=== PATIENT | female | born 1960 | race Caucasian/White ===

== ENCOUNTER → 2016-05-31 | Outpatient (CLI) | payer OTHER ==
[2014-05-20 08:39] VITALS: BP 121/62
[~2016-05-31] MED LIST: DULO60CA6 PO; ESOM40CA PO; FEXO180T81 PO; INSU100I17 SQ; INSU100V8 SQ; LOSA50TA6 PO; METF10002 PO; PIRO20CA2 PO
[2016-05-31 08:11] LABS: BASO # 0.1 x10^3/uL (0.0-0.2); BASO % 1 % (0-3); EOS % 5 % (0-3); HEMATOCRIT 36.1 % (36.0-47.0); HEMOGLOBIN 11.2 g/dL (12.0-15.5); LYMPH # 4.4 x10^3/uL (1.0-4.8); LYMPH % 31 % (24-48); MEAN CORPUSCULAR HEMOGLOBIN 26 pg (25-35); MEAN CORPUSCULAR HGB CONC 31 g/dL (31-37); MEAN CORPUSCULAR VOLUME 83 fL (79-100); MONO % 7 % (0-9); NEUT % 57 % (31-73); PLATELET COUNT 423 x10^3/uL (140-400); RED BLOOD COUNT 4.34 x10^6/uL (3.50-5.40); RED CELL DISTRIBUTION WIDTH 15.5 % (11.5-14.5); WHITE BLOOD COUNT 14.4 x10^3/uL (4.0-11.0)
[2016-05-31 08:31] LABS: ALBUMIN 3.4 g/dL (3.4-5.0); ALBUMIN/GLOBULIN RATIO 0.9 (1.0-1.7); CALCIUM 9.1 mg/dL (8.5-10.1); CREATININE 1.1 mg/dL (0.6-1.0); POTASSIUM 4.4 mmol/L (3.5-5.1); TOTAL BILIRUBIN 0.3 mg/dL (0.2-1.0); TOTAL PROTEIN 7.1 g/dL (6.4-8.2)
== END | disposition home or self-care (01) ==
LOC: LAB 07:27
PROVIDERS: ATTEND Family Medicine
DX: I10 Essential (primary) hypertension (principal); E11.65 Type 2 diabetes mellitus with hyperglycemia
CPT/HCPCS: 36415; 80053; 82043; 83036; 85027

== ENCOUNTER → 2016-07-29 | Outpatient (CLI) | payer OTHER ==
[2014-05-20 08:39] VITALS: BP 121/62
[2016-07-29 08:08] LABS: BASO # 0.1 x10^3/uL (0.0-0.2); BASO % 1 % (0-3); EOS % 5 % (0-3); HEMATOCRIT 36.5 % (36.0-47.0); HEMOGLOBIN 11.5 g/dL (12.0-15.5); LYMPH # 5.1 x10^3/uL (1.0-4.8); LYMPH % 37 % (24-48); MEAN CORPUSCULAR HEMOGLOBIN 26 pg (25-35); MEAN CORPUSCULAR HGB CONC 31 g/dL (31-37); MEAN CORPUSCULAR VOLUME 81 fL (79-100); MONO % 7 % (0-9); NEUT % 50 % (31-73); PLATELET COUNT 373 x10^3/uL (140-400); RED BLOOD COUNT 4.48 x10^6/uL (3.50-5.40); RED CELL DISTRIBUTION WIDTH 15.2 % (11.5-14.5); WHITE BLOOD COUNT 13.8 x10^3/uL (4.0-11.0)
[2016-07-30 03:21] LABS: VITAMIN D25(OH)TOTAL 14.8 ng/mL (30.0-100.0)
== END | disposition home or self-care (01) ==
LOC: LAB 07:39
PROVIDERS: ATTEND Family Medicine
DX: M79.1 Myalgia (principal)
CPT/HCPCS: 36415; 82306; 85027; 85651; 86141

== ENCOUNTER → 2016-08-26 | Outpatient (CLI) | payer OTHER ==
[2014-05-20 08:39] VITALS: BP 121/62
--- NOTE | 2016-08-26 12:14 | RAD ---
Bilateral hand radiographs History: Polyarthralgia. Comparison: Similar examination 08/18/2015. Findings: PA, lateral, and oblique views of the right hand. No acute fracture or dislocation is identified. No erosive changes are seen. No significant degeneration is identified. No focal soft tissue swelling is seen. PA, lateral, and oblique views of the left hand. No acute fracture or dislocation is identified. No erosive changes are seen. No significant degeneration is appreciated. No focal soft tissue swelling is identified. Impression: Unremarkable bilateral hand radiographs.
[2016-08-26 20:20] LABS: RHEUMATOID FACTOR <10.0 IU/mL (0.0-13.9)
[2016-08-28 15:10] LABS: CYCLIC CITRULLIN PEP AB 4 units (0-19)
== END | disposition home or self-care (01) ==
LOC: LAB 08:45
PROVIDERS: ATTEND Internal Medicine Rheumatology
DX: M25.541 Pain in joints of right hand (principal)
CPT/HCPCS: 36415; 73130; 86200; 86431

== ENCOUNTER → 2016-08-26 | Outpatient (CLI) | payer OTHER ==
[2014-05-20 08:39] VITALS: BP 121/62
--- NOTE | 2016-08-26 08:57 | RAD ---
DATE: 08/26/2016 EXAM: DIGITAL SCREEN BILAT W/CAD HISTORY: Routine screening COMPARISON: 07/16/2015 This study was interpreted with the benefit of Computerized Aided Detection (CAD). FINDINGS: The breasts are predominantly fatty replaced. There is a small unchanged smooth nodule in the axillary tail region of the left breast compatible with an intramammary lymph node. No new or enlarging breast densities are seen. Minimal benign type calcification is present. No suspicious microcalcifications have developed. IMPRESSION: Stable mammograms without evidence of malignancy. BI-RADS CATEGORY: 2 BENIGN FINDING(S) RECOMMENDED FOLLOW-UP: 12M 12 MONTH FOLLOW-UP PQRS compliance statement: Patient information was entered into a reminder system with a target due date for the next mammogram. Mammography is a sensitive method for finding small breast cancers, but it does not detect them all and is not a substitute for careful clinical examination. A negative mammogram does not negate a clinically suspicious finding and should not result in delay in biopsying a clinically suspicious abnormality. "Our facility is accredited by the [employer] Mammography [employer]."
== END | disposition home or self-care (01) ==
LOC: MAMMO 08:05
PROVIDERS: ATTEND Family Medicine
DX: Z12.31 Encounter for screening mammogram for malignant neoplasm of breast (principal)
CPT/HCPCS: G0202; 77067

== ENCOUNTER 2016-09-13 08:50 | Emergency (ER) | payer OTHER ==
[~2016-09-13] VITALS: Ht 157.5 cm; Wt 108.9 kg
[2016-09-13 09:35] VITALS: BP 118/60
[2016-09-13] MEDS ORDERED: IBUPROFEN 800 MG TABLET. PO ONE (10:00)
--- NOTE | 2016-09-13 11:01 | RAD ---
CT cervical spine without contrast History: Fall, pain Comparison: None. Technique: Noncontrast helical CT of the cervical spine was performed from the skull base through the mid T2 level. Axial, sagittal, and coronal reconstructions were obtained. One or more of the following individualized dose reduction techniques were utilized for the study: Automated exposure control Adjustment of mA and/or kV according to patient's size Use of iterative reconstruction technique. Findings: There is motion artifact at multiple levels which could obscure subtle abnormalities. There is no evidence of acute fracture or acute malalignment. No prevertebral soft tissue swelling is identified. Multilevel degeneration is present with facet and uncovertebral hypertrophy as well as degenerative disc disease. Impression: 1. No acute osseous traumatic injury identified in the cervical spine. 2. Degeneration.
--- NOTE | 2016-09-13 11:06 | RAD ---
CT thoracic spine without contrast History: Fall, pain Comparison: None. Technique: Noncontrast helical CT of the thoracic spine was performed. Axial, sagittal, and coronal reconstructions were obtained. One or more of the following individualized dose reduction techniques were utilized for the study: Automated exposure control Adjustment of mA and/or kV according to patient's size Use of iterative reconstruction technique. Findings: No acute fracture to malalignment is identified. No paravertebral soft tissue swelling is identified. There are 12 rib-bearing thoracic type vertebral bodies. Multiple levels demonstrate marginal disc osteophytes, compatible with changes of diffuse idiopathic skeletal hyperostosis (DISH). Impression: 1. No acute osseous traumatic injury identified.
--- NOTE | 2016-09-13 11:44 | RAD ---
Left ankle, 3 views, 09/13/2016: History: Fall, pain There is a bony fragment at the tip of the medial malleolus which is probably old. There is moderate soft tissue swelling laterally. No acute fracture or dislocation is identified. There is mild spurring at the ankle joint. A small inferior calcaneal spur is noted. Left foot, 3 views, 09/13/2016: No fracture or dislocation is identified. There is mild subcutaneous edema about the foot. IMPRESSION: 1. A small bony fragment at the tip of the medial malleolus is most likely due to old trauma. 2. Mild degenerative change at the ankle joint. 3. No acute bony abnormality is detected.
--- NOTE | 2016-09-13 11:47 | RAD ---
Right foot, 3 views, 09/13/2016: History: Fall, pain No acute fracture or dislocation is identified. There is a small inferior calcaneal spur. IMPRESSION: No acute bony abnormality is detected.
--- NOTE | 2016-09-13 11:48 | RAD ---
Pelvis with right hip, 3 views, 09/13/2016: History: Fall, hip pain No fracture or dislocation is identified. The hip joint spaces are fairly well preserved with mild marginal spurring. IMPRESSION: No acute pelvic or right hip abnormality is detected.
--- NOTE | 2016-09-13 12:50 | PHYS DOC ---
Past Medical History Past Medical History: Anxiety, Arthritis, Depression, Diabetes-Type I Additional Past Medical Histor: SHINGLES Past Surgical History: Cholecystectomy, Other Additional Past Surgical Histo: SCOPES TO BOTH KNEES, LEFT TENNIS ELBOW, BREAST BX, LIPOMAA REMOVAL Alcohol Use: None Drug Use: None Adult General Chief Complaint Chief Complaint: MECHANICAL FALL HPI HPI Patient is a 56 year old female with history of anxiety, arthritis, depression who presents today status post falling, patient states she got tangled on a patient's oxygen tubbing and fell. Patient denies any loss of consciousness. She is complaining of neck pain, thoracic pain, right hip pain, left ankle pain , bilateral feet pain. Patient denies any pain radiating to bilateral lower extremities, denies any loss of bowel bladder function. Review of Systems Review of Systems Constitutional: Denies fever or chills [] Eyes: Denies change in visual acuity, redness, or eye pain [] HENT: Denies nasal congestion or sore throat [] Respiratory: Denies cough or shortness of breath [] Cardiovascular: No additional information not addressed in HPI [] GI: Denies abdominal pain, nausea, vomiting, bloody stools or diarrhea [] : Denies dysuria or hematuria [] Musculoskeletal: Denies back pain or joint pain [] Integument: Denies rash or skin lesions [] Neurologic: Denies headache, focal weakness or sensory changes [] Endocrine: Denies polyuria or polydipsia [] Current Medications Current Medications Current Medications Medications (Trade) Dose Ordered Sig/Gretchen Start Time Stop Time Status Last Admin Dose Admin Ibuprofen (Motrin) 800 mg 1X ONCE 09/13/16 10:00 09/13/16 10:01 DC 09/13/16 10:11 800 MG Allergies Allergies Allergies Coded Allergies Type Severity Reaction Last Updated Verified Sulfa (Sulfonamide Antibiotics) Allergy Intermediate 05/20/14 Yes doxycycline Allergy Intermediate Itching 05/20/14 Yes levofloxacin Allergy Intermediate bone pain 05/20/14 No Physical Exam Physical Exam Constitutional: Well developed, well nourished, no acute distress, non-toxic appearance. [] HENT: Normocephalic, atraumatic, bilateral external ears normal, oropharynx moist, no oral exudates, nose normal. [] Eyes: PERRLA, EOMI, conjunctiva normal, no discharge. [] Neck: Normal range of motion, diffuse paraspinal muscle tenderness to the right lateral spine, slight midline tenderness to the spine, supple, no stridor. [] Cardiovascular:Heart rate regular rhythm, no murmur [] Lungs & Thorax: Bilateral breath sounds clear to auscultation [] Abdomen: Bowel sounds normal, soft, no tenderness, no masses, no pulsatile masses. [] Skin: Warm, dry, no erythema, no rash. [] Back: No tenderness, no CVA tenderness. [] Extremities: No obvious deformity to the bilateral lower extremities. Tenderness on palpation of the right posterior hip. Mild amount of soft tissue swelling to bilateral ankles. Tenderness diffusely on palpation of the left lateral ankle. Full range of motion to the left ankle and foot. Full range of motion to the right foot. +2 bilateral pedal pulses. Sensation intact bilateral lower extremities. Neurologic: Alert and oriented X 3, normal motor function, normal sensory function, no focal deficits noted. [] Psychologic: Affect normal, judgement normal, mood normal. [] Current Patient Data Vital Signs Vital Signs Date Time Temp Pulse Resp B/P Pulse Ox O2 Delivery O2 Flow Rate FiO2 09/13/16 09:35 98.1 83 19 94 Room Air 98.1 EKG EKG [] Radiology/Procedures Radiology/Procedures [] Course & Med Decision Making Course & Med Decision Making Pertinent Labs and Imaging studies reviewed. (See chart for details) Patient is in the ED status post falling today. She has neck pain, mid back pain , right hip pain, bilateral feet pain, and left ankle pain. Cervical spine and thoracic spine CT is a negative for any acute findings. Right hip x-ray including pelvic is negative for any acute findings. Bilateral feet x-rays are negative for any acute findings. Left ankle x-ray is noted for an old medial malleolus bone fragment, patient was placed in a sterile splint by the instrument tech, neurovascular exam done by me is normal, cap refill less than 2 seconds. Provided crutches in the ED. Ice elevation encouraged. Follow-up with orthopedic doctor tomorrow. Asteron Disclaimer Dragon Disclaimer This electronic medical record was generated, in whole or in part, using a voice recognition dictation system. Departure Departure Impression: Primary Impression: Fall from standing Additional Impressions: Fracture of medial malleolus, left, closed Contusion, hip Acute cervical sprain Contusion of thoracic wall Disposition: HOME, SELF-CARE Condition: STABLE Referrals: ERLINDA AUSTIN MD (PCP) STIVEN OROZCO II, MD Follow-up with orthopedic doctor in one week Patient Instructions: Ankle Sprain, Cervical Sprain, [id number], Contusion Additional Instructions: You were seen status post fall. Your CT of the cervical spine and thoracic spine are negative for any acute findings. Your left ankle x-rays are noted for an old medial malleolus bone fragment. We recommend you follow-up with the orthopedic doctor for this. Ice and elevate the affected extremities. Problem Qualifiers Primary Impression: Fall from standing Encounter type: initial encounter Qualified Code: W19.XXXA - Unspecified fall, initial encounter Additional Impressions: Fracture of medial malleolus, left, closed Encounter type: initial encounter Fracture alignment: nondisplaced Qualified Code: S82.55XA - Nondisplaced fracture of medial malleolus of left tibia, initial encounter for closed fracture Contusion, hip Encounter type: initial encounter Laterality: left Qualified Code: S70.02XA - Contusion of left hip, initial encounter Acute cervical sprain Encounter type: initial encounter Qualified Code: S13.9XXA - Sprain of joints and ligaments of unspecified parts of neck, initial encounter Contusion of thoracic wall Encounter type: initial encounter Contusion of thoracic wall detail: back wall of thorax Laterality: unspecified laterality Qualified Code: S20.229A - Contusion of unspecified back wall of thorax, initial encounter BRADFORD SÁNCHEZ APRN Sep 13, 2016 12:50
--- NOTE | 2016-09-14 10:59 | RAD ---
Left ankle, 3 views, 09/13/2016: History: Fall, pain There is a bony fragment at the tip of the medial malleolus which is probably old. There is moderate soft tissue swelling laterally. No acute fracture or dislocation is identified. There is mild spurring at the ankle joint. A small inferior calcaneal spur is noted. Left foot, 3 views, 09/13/2016: No fracture or dislocation is identified. There is mild subcutaneous edema about the foot. IMPRESSION: 1. A small bony fragment at the tip of the medial malleolus is most likely due to old trauma. 2. Mild degenerative change at the ankle joint. 3. No acute bony abnormality is detected. DICTATED and SIGNED BY: JAVY ALONSO MD DATE: 09/13/16 1139 Right foot, 3 views, 09/13/2016: History: Fall, pain No acute fracture or dislocation is identified. There is a small inferior calcaneal spur. IMPRESSION: No acute bony abnormality is detected. DICTATED and SIGNED BY: JAVY ALONSO MD DATE: 09/13/16 1144 [facility]
--- NOTE | 2016-09-14 11:03 | RAD ---
Left ankle, 3 views, 09/13/2016: History: Fall, pain There is a bony fragment at the tip of the medial malleolus which is probably old. There is moderate soft tissue swelling laterally. No acute fracture or dislocation is identified. There is mild spurring at the ankle joint. A small inferior calcaneal spur is noted. Left foot, 3 views, 09/13/2016: No fracture or dislocation is identified. There is mild subcutaneous edema about the foot. IMPRESSION: 1. A small bony fragment at the tip of the medial malleolus is most likely due to old trauma. 2. Mild degenerative change at the ankle joint. 3. No acute bony abnormality is detected. DICTATED and SIGNED BY: JAVY ALONSO MD DATE: 09/13/16 1139 [facility]TDD
== END 2016-09-13 13:02 | disposition home or self-care (01) ==
LOC: ER 08:50
DX: S82.52XA Displaced fracture of medial malleolus of left tibia, initial encounter for closed fracture (principal); S13.4XXA Sprain of ligaments of cervical spine, initial encounter; S70.01XA Contusion of right hip, initial encounter; S20.229A Contusion of unspecified back wall of thorax, initial encounter; E10.9 Type 1 diabetes mellitus without complications; M19.90 Unspecified osteoarthritis, unspecified site; Z90.49 Acquired absence of other specified parts of digestive tract; Z98.890 Other specified postprocedural states; Z88.2 Allergy status to sulfonamides; Z88.1 Allergy status to other antibiotic agents; W18.39XA Other fall on same level, initial encounter; Y93.89 Activity, other specified; Y99.8 Other external cause status; Y92.89 Other specified places as the place of occurrence of the external cause
CPT/HCPCS: 29515; 72125; 72128; 73502; 73610; 73630; 99284-25

== ENCOUNTER → 2016-11-07 | Outpatient (CLI) | payer OTHER ==
[~2016-11-07] MED LIST changes: +METF-620 PO; -METF10002 PO
--- NOTE | 2016-11-07 15:55 | RAD ---
MR of the right hip HISTORY: Right hip pain after a fall. TECHNIQUE: Routine multiplanar sequences are obtained. FINDINGS: No bone lesion or acute fracture. No acute bone marrow edema. No evidence of femoral head osteonecrosis. Mild degenerative changes of right hip. Subchondral cyst at the anterior acetabulum. No significant joint effusion. Mild labral degeneration but no clear-cut tear or detachment. Mild gluteus minimus tendinosis. Minimal adjacent edema. Gluteus medius tendon intact. Hamstring tendon intact. Iliopsoas tendon intact. On the coronal images, mild edema is seen within the right gluteus jennifer muscle most likely a strain or contusion. IMPRESSION: 1. Mild edema within the right gluteus jennifer muscle, most likely contusion or strain in this clinical context of injury. 2. Degenerative changes at the right hip. 3. Mild gluteus minimus tendinosis. Electronically signed by: Dino Hodges MD (11/07/2016 3:52 PM)
--- NOTE | 2016-11-07 16:08 | RAD ---
MR of the musculoskeletal pelvis HISTORY: Patient fell. Right hip and sacrum pain. TECHNIQUE: Routine multiplanar sequences are obtained. Using a large field of view through the skeletal pelvis. FINDINGS: The area of mild intramuscular edema within the right gluteus maximum is not well seen on this exam. No additional muscle injury or hematoma is identified. No bone lesion. No acute fracture. No acute bone marrow edema. No femoral head osteonecrosis. The sacroiliac joints appear unremarkable. Pubic symphysis intact. No significant hip joint effusion or para labral cyst. Subchondral cyst again noted in the right acetabulum. Major tendon attachments are intact. IMPRESSION: 1. The mild intramuscular edema identified in the hip MR is not clearly seen on this exam. 2. No additional abnormality is identified. Electronically signed by: Dino Hodges MD (11/07/2016 4:04 PM)
== END | disposition home or self-care (01) ==
LOC: MRI 14:20
PROVIDERS: ATTEND Family Medicine
DX: M54.41 Lumbago with sciatica, right side (principal); M25.551 Pain in right hip
CPT/HCPCS: 72195; 73721

== ENCOUNTER → 2017-02-14 | Outpatient (CLI) | payer OTHER ==
[2017-02-14 08:41] LABS: ALBUMIN 3.8 g/dL (3.4-5.0); C-REACTIVE PROTEIN 15.5 mg/L (0-3.3); CALCIUM 9.1 mg/dL (8.5-10.1); CREATININE 1.2 mg/dL (0.6-1.0); GFR 46.8; POTASSIUM 4.3 mmol/L (3.5-5.1); TOTAL BILIRUBIN 0.3 mg/dL (0.2-1.0); TOTAL PROTEIN 7.7 g/dL (6.4-8.2); URIC ACID 5.9 mg/dL (2.6-6.0)
[2017-02-14 08:42] LABS: CHOLESTEROL/HDL RATIO 3.1
--- NOTE | 2017-02-14 09:50 | RAD ---
EXAM: Left elbow, 2 views. HISTORY: Pain. COMPARISON: None. FINDINGS: Frontal and lateral views of the left elbow are obtained. There is no fracture, dislocation or subluxation. There is a prominent anterior fat pad without nicolas elbow effusion. IMPRESSION: No acute osseous finding.
== END | disposition home or self-care (01) ==
LOC: LAB 07:27
PROVIDERS: ATTEND Family Medicine
DX: M25.522 Pain in left elbow (principal); E11.65 Type 2 diabetes mellitus with hyperglycemia; E78.5 Hyperlipidemia, unspecified
CPT/HCPCS: 36415; 73070; 80053; 80061; 83036; 84550; 85651; 86140

== ENCOUNTER → 2017-06-19 | Outpatient (CLI) | payer OTHER | END | disposition home or self-care (01) | LOC: RAD 15:17 | DX: J40 Bronchitis, not specified as acute or chronic (principal); R06.2 Wheezing | CPT/HCPCS: 71046 ==

== ENCOUNTER 2017-08-23 07:01 | Emergency (ER) | payer OTHER | END 2017-08-23 07:50 | disposition home or self-care (01) | LOC: ER 07:01 | DX: L03.211 Cellulitis of face (principal); B02.9 Zoster without complications; E10.9 Type 1 diabetes mellitus without complications; M19.90 Unspecified osteoarthritis, unspecified site; Z88.1 Allergy status to other antibiotic agents; Z88.2 Allergy status to sulfonamides | CPT/HCPCS: 99283 ==

== ENCOUNTER → 2017-11-10 | Outpatient (CLI) | payer OTHER ==
[2017-11-10 08:49] LABS: ALBUMIN 3.5 g/dL (3.4-5.0); ALBUMIN/GLOBULIN RATIO 0.9 (1.0-1.7); ALK PHOS 105 U/L (46-116); ALT (SGPT) 33 U/L (14-59); ANION GAP 10 (6-14); AST (SGOT) 37 U/L (15-37); BLOOD UREA NITROGEN 12 mg/dL (7-20); BUN/CREATININE RATIO 10 (6-20); CALCIUM 8.6 mg/dL (8.5-10.1); CARBON DIOXIDE 27 mmol/L (21-32); CHLORIDE 100 mmol/L (98-107); CHOLESTEROL 143 mg/dL (0-200); CHOLESTEROL/HDL RATIO 2.9; CREATININE 1.2 mg/dL (0.6-1.0); GFR 46.6; GLUCOSE 223 mg/dL (70-99); HDLC 50 mg/dL (40-60); LDLC 57 mg/dL (0-100); NON-HDL CHOLESTEROL 93 mg/dL (0-129); POTASSIUM 3.9 mmol/L (3.5-5.1); SODIUM 137 mmol/L (136-145); TOTAL BILIRUBIN 0.3 mg/dL (0.2-1.0); TOTAL PROTEIN 7.2 g/dL (6.4-8.2); TRIGLYCERIDES 179 mg/dL (0-150); VLDLC 36 mg/dL (0-40)
[2017-11-10 19:17] LABS: MICRO CREAT RATIO 12.7 mg/g creat (0.0-30.0); MICROALB RD UR 9.9 ug/mL (Not Estab.)
[2017-11-11 01:11] LABS: HEMOGLOBIN A1C 8.7 % (4.8-5.6)
== END | disposition home or self-care (01) ==
LOC: LAB 07:39
DX: E11.65 Type 2 diabetes mellitus with hyperglycemia (principal); I10 Essential (primary) hypertension; E78.5 Hyperlipidemia, unspecified
CPT/HCPCS: 36415; 80053; 80061; 82043; 82570; 83036

== ENCOUNTER → 2018-01-29 | Outpatient (CLI) | payer OTHER ==
[2017-08-30 15:51] VITALS: BP 139/63
[~2018-01-29] MED LIST changes: +ALPR1TAB6 PO; +CEPH-264 PO; +CHOL2000 PO; +CLIN300C8 PO; +CYCL10TA2 PO; +DICL112S2 TP; +DIME42GE TP; +EYE15DRO EACHEYE; +FLUC100T4 PO; +FLUC150T PO; +FLUT9.9S NS; +GABA600T2 PO; +HYDR-2762 PO; +HYDR200T5 PO; +KRIL500C PO; +LIDO30CR TP; +LINE600T PO; -LOSA50TA6 PO; +LOSA50TA7 PO; -METF-620 PO; +METF10007 PO; +MULT1TAB52 PO; +SIMV10TA3 PO; +TRAZ-86 PO; +VALA1000 PO
[2018-01-29 10:27] LABS: ALBUMIN 3.7 g/dL (3.4-5.0); CALCIUM 8.8 mg/dL (8.5-10.1); CREATININE 1.4 mg/dL (0.6-1.0); TOTAL BILIRUBIN 0.3 mg/dL (0.2-1.0); TOTAL PROTEIN 7.4 g/dL (6.4-8.2)
[2018-01-29 10:30] LABS: CHOLESTEROL/HDL RATIO 3.1
[2018-01-29 10:43] LABS: FREE T4 0.97 ng/dL (0.76-1.46); THYROID STIM HORMONE (TSH) 1.61 uIU/mL (0.358-3.74)
== END | disposition home or self-care (01) ==
LOC: LAB 09:20
PROVIDERS: ATTEND Family Medicine
DX: E11.65 Type 2 diabetes mellitus with hyperglycemia (principal); E78.5 Hyperlipidemia, unspecified; M25.562 Pain in left knee; L65.9 Nonscarring hair loss, unspecified; I10 Essential (primary) hypertension; E11.9 Type 2 diabetes mellitus without complications; K21.9 Gastro-esophageal reflux disease without esophagitis; Z86.19 Personal history of other infectious and parasitic diseases; Z87.442 Personal history of urinary calculi; Z90.49 Acquired absence of other specified parts of digestive tract; Z88.1 Allergy status to other antibiotic agents; Z88.2 Allergy status to sulfonamides
CPT/HCPCS: 36415; 80053; 80061; 82306; 82607; 83036; 84439; 84443

== ENCOUNTER → 2018-02-02 | Outpatient (CLI) | payer OTHER ==
[2017-08-30 15:51] VITALS: BP 139/63
--- NOTE | 2018-02-02 10:05 | RAD ---
DATE: 02/02/2018 EXAM: MAMMO ILANA SCREENING BILATERAL HISTORY: Routine screening COMPARISON: 08/26/2016 This study was interpreted with the benefit of Computerized Aided Detection (CAD). Breast Density: FATTY The breast parenchyma is primarily fatty replaced. Breast parenchyma level density A. FINDINGS: 2-D and 3-D tomosynthesis imaging was performed in CC and MLO projections. There is an unchanged benign-appearing lymph node type density in the posterolateral aspect of the left breast. No new or enlarging breast densities are seen. Minimal benign type calcification is present. No suspicious microcalcifications have developed. IMPRESSION: Stable mammograms without evidence of malignancy. BI-RADS CATEGORY: 2 BENIGN FINDING(S) RECOMMENDED FOLLOW-UP: 12M 12 MONTH FOLLOW-UP PQRS compliance statement: Patient information was entered into a reminder system with a target due date for the next mammogram. Mammography is a sensitive method for finding small breast cancers, but it does not detect them all and is not a substitute for careful clinical examination. A negative mammogram does not negate a clinically suspicious finding and should not result in delay in biopsying a clinically suspicious abnormality. "Our facility is accredited by the [employer] Mammography Program."
== END | disposition home or self-care (01) ==
LOC: MAMMO 09:00
PROVIDERS: ATTEND Family Medicine
DX: Z12.31 Encounter for screening mammogram for malignant neoplasm of breast (principal); I10 Essential (primary) hypertension; E11.9 Type 2 diabetes mellitus without complications; K21.9 Gastro-esophageal reflux disease without esophagitis; E66.9 Obesity, unspecified; Z88.2 Allergy status to sulfonamides; Z88.1 Allergy status to other antibiotic agents; Z68.42 Body mass index [BMI] 45.0-49.9, adult; Z90.49 Acquired absence of other specified parts of digestive tract; Z79.4 Long term (current) use of insulin; Z87.442 Personal history of urinary calculi; Z86.19 Personal history of other infectious and parasitic diseases; Z82.49 Family history of ischemic heart disease and other diseases of the circulatory system
CPT/HCPCS: 77063; 77067

== ENCOUNTER 2018-04-17 07:10 | Outpatient (CLI) | payer OTHER ==
[~2018-04-17] VITALS: Ht 160 cm; Wt 108.9 kg
[~2018-04-17 07:10] MED LIST changes: -HYDR-2762 PO; +HYDR-2765 PO
[2018-04-17] MEDS ORDERED: SODIUM BICARBONATE VIAL 150 MEQ in IV STERILE WATER 1,000 ML IV SCH (07:30)
[2018-04-17 08:04] VITALS: BP 119/60
[2018-04-17] MEDS ORDERED: IOHEXOL 300 MG/ML 100ML VIAL. IV ONE (08:45)
[2018-04-17] MEDS ORDERED: CONTRAST GIVEN. MC PRN (09:00)
--- NOTE | 2018-04-17 11:09 | RAD ---
CT head without and with intravenous intravenous contrast History: Memory loss, changes. Comparison: None. Technique: Axial images are obtained of the head from the skull base through the vertex without IV contrast. After intravenous contrast administration, 60 mL Omnipaque 300, repeat examination was performed. Exposure: One or more of the following individualized dose reduction techniques were utilized for this examination: 1. Automated exposure control 2. Adjustment of the mA and/or kV according to patient size 3. Use of iterative reconstruction technique Findings: The ventricles are appropriate in size, shape, and location for the patient's age. No obvious intracranial mass, mass-effect, midline shift, hemorrhage or obvious acute infarction is identified. Basilar cisterns are patent. No abnormal intracranial enhancement is seen. Major intracranial vascular structures enhance appropriately. Bone windows demonstrate no acute calvarial abnormality. Minimal mucosal thickening is seen involving the visualized right maxillary sinus. Impression: 1. No acute abnormality identified. Electronically signed by: Dino Antony MD (04/17/2018 11:06 AM) [email or web address]
== END 2018-04-17 13:48 | disposition home or self-care (01) ==
LOC: CT 07:10
PROVIDERS: ATTEND Family Medicine
DX: R41.3 Other amnesia (principal)
CPT/HCPCS: 70470; Q9967

== ENCOUNTER 2018-05-30 02:24 | Emergency (ER) | payer OTHER ==
[~2018-05-30] VITALS: Ht 157.5 cm; Wt 106.1 kg
[~2018-05-30 02:24] MED LIST changes: -GABA600T2 PO; +GABA600T7 PO; +LOSA-73 PO; -LOSA50TA7 PO
[2018-05-30] MEDS ORDERED: IBUPROFEN 600 MG TABLET. PO ONE (03:30)
[2018-05-30 03:35] VITALS: BP 119/51
--- NOTE | 2018-05-30 03:52 | RAD ---
Left ankle 3 views, left knee 3 views. HISTORY: Pain, knee gave out Left knee 3 views were taken of the left knee. There is evidence of osteoarthritis. There is joint space narrowing in the medial joint compartment. There is hypertrophic spurring. There is a foreign body in the posterior soft tissues behind the knee. There is no acute fracture. Left ankle 3 views were taken of the left ankle. There is soft tissue swelling. There is mild spurring on the calcaneus. There is no fracture or other acute osseous abnormality. IMPRESSION: 1. Foreign body in the posterior soft tissues behind the knee. 2. Osteoarthritis left knee. 3. No acute fracture left knee. 4. Soft tissue swelling left ankle. 5. No fracture left ankle. Electronically signed by: Brody Woods MD (05/30/2018 3:48 AM) [id number]
[2018-05-30] MEDS ORDERED: TRAM50TA PO (03:53)
--- NOTE | 2018-05-30 20:44 | PHYS DOC ---
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 Patient states her left knee gave out causing her to fall and twisting her ankle. Reports left swelling posterior knee pain, left ankle pain and swelling. No other injury or complaint. Patient is weightbearing and work 2 hours after injury. No medications or therapy sticking prior to ED evaluation. Patient is not on anticoagulation therapy. [] Review of Systems Review of Systems Review symptoms as per history of present illness. All other review symptoms are negative. All other systems were reviewed and found to be within normal limits, except as documented in this note. Current Medications Current Medications Current Medications Medications (Trade) Dose Ordered Sig/Gretchen Start Time Stop Time Status Last Admin Dose Admin Ibuprofen (Motrin) 600 mg 1X ONCE 05/30/18 03:30 05/30/18 03:31 DC 05/30/18 03:41 600 MG Allergies Allergies Allergies Coded Allergies Type Severity Reaction Last Updated Verified ragweed pollen Allergy Severe 08/25/17 Yes Sulfa (Sulfonamide Antibiotics) Allergy Intermediate 08/23/17 Yes doxycycline Allergy Intermediate Itching 08/23/17 Yes levofloxacin Allergy Intermediate bone pain 08/29/17 Yes I S O L A T I O N *CONTACT* Allergy Unknown 08/29/17 Yes Physical Exam Physical Exam Constitutional: Well developed, well nourished, no acute distress, non-toxic appearance. [] HENT: Normocephalic, atraumatic, bilateral external ears normal, oropharynx moist, no oral exudates, nose normal. [] Eyes: PERRLA, EOMI, conjunctiva normal, no discharge. [] Neck: Normal range of motion. Extremities: Left lower extremity, left knee no bony or joint rhythm tenderness , anterior joint swelling, pain with flexion and extension knee, left ankle, minimal swelling, tenderness over medial malleolus. No deformities of left lower extremity.. [] Neurologic: Alert and oriented X 3, normal motor function, normal sensory function, no focal deficits noted. [] Psychologic: Affect normal, judgement normal, mood normal. [] Current Patient Data Vital Signs Vital Signs Date Time Temp Pulse Resp B/P (MAP) Pulse Ox O2 Delivery O2 Flow Rate FiO2 05/30/18 03:35 82 93 05/30/18 02:40 98.6 18 119/60 (79) Room Air 98.6 EKG EKG [] Radiology/Procedures Radiology/Procedures [Left knee/Left ankle: No fx] Course & Med Decision Making Course & Med Decision Making Pertinent Labs and Imaging studies reviewed. (See chart for details) [No obvious displaced fracture. Patient placed in the immobilizer with instructions to follow up with work comp physician.] Dragon Disclaimer Dragon Disclaimer This electronic medical record was generated, in whole or in part, using a voice recognition dictation system. Departure Departure Impression: Primary Impression: Left ankle injury Additional Impression: Left knee injury Disposition: HOME, SELF-CARE Condition: GOOD Patient Instructions: Ankle Sprain, [id number], Knee Sprain, [id number] Additional Instructions: Please take ibuprofen for pain and tramadol as needed for additional relief. Wear knee mobilizer, use crutches and keep leg elevated at rest. Follow up with work comp doctor later today for reevaluation. Scripts Tramadol Hcl (TRAMADOL HCL) 50 Mg Tablet 50 MG PO Q6H PRN for PAIN for 3 Days, #15 TAB 0 Refills Prov: RUI COSTA DO 05/30/18 Problem Qualifiers RUI COSTA DO May 30, 2018 20:44
== END 2018-05-30 04:11 | disposition home or self-care (01) ==
LOC: ER 02:24
DX: S89.92XA Unspecified injury of left lower leg, initial encounter (principal); M25.572 Pain in left ankle and joints of left foot; E10.9 Type 1 diabetes mellitus without complications; M17.12 Unilateral primary osteoarthritis, left knee; Z88.2 Allergy status to sulfonamides; Z88.1 Allergy status to other antibiotic agents; Z91.041 Radiographic dye allergy status; Z88.8 Allergy status to other drugs, medicaments and biological substances; W18.39XA Other fall on same level, initial encounter; Y93.89 Activity, other specified; Y92.89 Other specified places as the place of occurrence of the external cause; Y99.8 Other external cause status
CPT/HCPCS: 29505; 73562; 73610; 99283-25

== ENCOUNTER → 2018-06-22 | Outpatient (CLI) | payer OTHER ==
[2018-05-30 03:35] VITALS: BP 119/51
[~2018-06-22] MED LIST changes: +GABA600T2 PO; -GABA600T7 PO; +TRAM50TA PO
[2018-06-22 10:53] LABS: ALBUMIN 3.6 g/dL (3.4-5.0); ALBUMIN/GLOBULIN RATIO 0.9 (1.0-1.7); CREATININE 1.2 mg/dL (0.6-1.0); GFR 46.6; MAGNESIUM 1.4 mg/dL (1.8-2.4); POTASSIUM 4.3 mmol/L (3.5-5.1); TOTAL BILIRUBIN 0.3 mg/dL (0.2-1.0); TOTAL PROTEIN 7.4 g/dL (6.4-8.2)
[2018-06-22 11:06] LABS: BASO # 0.1 x10^3/uL (0.0-0.2); BASO % 1 % (0-3); EOS # 0.5 x10^3/uL (0.0-0.7); EOS % 5 % (0-3); HEMOGLOBIN 11.5 g/dL (12.0-15.5); LYMPH # 4.2 x10^3/uL (1.0-4.8); LYMPH % 37 % (24-48); MEAN CORPUSCULAR HEMOGLOBIN 27 pg (25-35); MEAN CORPUSCULAR HGB CONC 31 g/dL (31-37); MEAN CORPUSCULAR VOLUME 87 fL (79-100); MONO # 0.9 x10^3/uL (0.0-1.1); MONO % 8 % (0-9); NEUT # 5.8 x10^3uL (1.8-7.7); NEUT % 50 % (31-73); PLATELET COUNT 383 x10^3/uL (140-400); RED BLOOD COUNT 4.27 x10^6/uL (3.50-5.40); RED CELL DISTRIBUTION WIDTH 16.2 % (11.5-14.5); WHITE BLOOD COUNT 11.6 x10^3/uL (4.0-11.0)
[2018-06-22 11:40] LABS: BILIRUBIN,URINE NEGATIVE (NEG); CLARITY,URINE CLEAR; COLOR,URINE YELLOW; NITRITE,URINE NEGATIVE (NEG); PH,URINE 5.5; PROTEIN,URINE NEGATIVE (NEG-TRACE); UROBILINOGEN,URINE 0.2 mg/dL (0.2 mg/dL)
[2018-06-22 11:51] LABS: BACTERIA,URINE FEW /HPF (0-FEW); RBC,URINE OCC /HPF (0-2); SQUAMOUS EPITHELIAL CELL,UR MOD /LPF
[2018-06-23 00:11] LABS: HEMOGLOBIN A1C 8.3 % (4.8-5.6)
== END | disposition home or self-care (01) ==
LOC: LAB 09:47
PROVIDERS: ATTEND Family Medicine
DX: R41.3 Other amnesia (principal)
CPT/HCPCS: 36415; 80053; 81001; 82607; 82746; 83036; 83735; 84436; 84443; 85025; 85651; 86592; 87086

== ENCOUNTER → 2018-07-27 | Outpatient (CLI) | payer OTHER ==
[~2018-07-27] MED LIST changes: -GABA600T2 PO; +GABA600T7 PO
--- NOTE | 2018-07-27 12:27 | RAD ---
MR of the left knee HISTORY: Generalized left knee pain after a fall one year ago. TECHNIQUE: Routine multiplanar sequences are obtained. FINDINGS: Medial meniscus is small and distorted, compatible with a degenerative tear. Posterior horn of the lateral meniscus is slightly distorted at the meniscofemoral ligament origin. Small structure just posterior to the posterior horn could represent a small loose body or flipped meniscal fragment, measures 5 mm. Anterior cruciate ligament is intact. Posterior cruciate ligament intact. Medial collateral ligament intact. Iliotibial band unremarkable. Fibular collateral ligament, biceps femoris tendon and popliteus tendon are intact. Extensor mechanism is intact. Small joint effusion. Severe chondromalacia at the femoral trochlea, moderate at the patella. Severe cartilage loss at the medial compartment. Mild subchondral edema/cyst at the medial tibial plateau. Mild lateral joint chondromalacia. No bone destruction or acute fracture. Mild soft tissue edema around the knee. No significant Hinton's cyst. IMPRESSION: 1. Medial meniscal tear. 2. Probable posterior horn lateral meniscal tear. Small hypointense structure just posterior to the lateral meniscus is likely a loose body or a meniscal fragment. 3. Primary osteoarthritis. Electronically signed by: Dino Hodges MD (07/27/2018 12:24 PM) [id number]
--- NOTE | 2018-07-27 12:52 | RAD ---
MR of the left ankle HISTORY: Lateral left ankle pain and swelling after a fall one year ago. TECHNIQUE: Routine multiplanar sequences are obtained. FINDINGS: Mild fluid surrounds the peroneal tendons. Longitudinal split tear of the peroneus brevis brevis at and distal to the lateral malleolus. Anterior talofibular, calcaneofibular and posterior talofibular ligaments demonstrate no acute disruption but there does appear to be mild scarring. Anterior and posterior inferior tibiofibular ligaments are intact. Posterior tibial and flexor tendons are intact. Deltoid ligament scarring without acute tear Anterior tibial and extensor tendons are intact. Achilles tendon demonstrates mild insertional tendinosis and enthesophytes without acute tear. Small calcaneal enthesophyte and plantar aponeurotic thickening compatible with chronic plantar fasciitis. Subtalar joints intact. Tarsal sinus unremarkable. Talar dome intact. There is a small ossicle just posterior to the talus surrounded by fluid may represent a small loose body there is mild fluid in the posterior subtalar joint recess. No aggressive bone destruction or acute fracture. Mild soft tissue edema. Mild degenerative changes are identified at the ankle and visualized foot. IMPRESSION: 1. Peroneal tendon sheath fluid. Longitudinal split tear of the peroneus brevis tendon. 2. No medial or lateral collateral ligament scarring. 3. Mild chronic appearing plantar fasciitis. 4. There appears to be a small loose body posterior to the posterior subtalar joint. Electronically signed by: Dino Hodges MD (07/27/2018 12:49 PM) [id number]
== END | disposition home or self-care (01) ==
LOC: MRI 07:48
PROVIDERS: ATTEND Family Medicine
DX: S86.312A Strain of muscle(s) and tendon(s) of peroneal muscle group at lower leg level, left leg, initial encounter (principal); S83.242A Other tear of medial meniscus, current injury, left knee, initial encounter; M25.462 Effusion, left knee; M22.42 Chondromalacia patellae, left knee; M17.12 Unilateral primary osteoarthritis, left knee; M79.5 Residual foreign body in soft tissue; X58.XXXA Exposure to other specified factors, initial encounter; Y93.89 Activity, other specified; Y92.89 Other specified places as the place of occurrence of the external cause; Y99.8 Other external cause status
CPT/HCPCS: 73721

== ENCOUNTER → 2019-03-04 | Outpatient (CLI) | payer OTHER ==
[~2019-03-04] MED LIST changes: -LINE600T PO; +LINE600T12 PO
--- NOTE | 2019-03-04 09:35 | RAD ---
CHEST PA LATERAL Clinical indications: Upper respiratory infection with cough and congestion and chills COMPARISON: June 19, 2017. Findings: No acute lung infiltrate or pleural effusion or pulmonary edema or lung mass or pneumothorax is seen. The heart size, pulmonary vasculature, mediastinum and both ashanti are unremarkable. The osseous structures appear intact. Impression: No acute radiographic abnormality is seen. Electronically signed by: Armani Espino MD (03/04/2019 9:32 AM) [place] [id number]
== END | disposition home or self-care (01) ==
LOC: RAD 07:53
PROVIDERS: ATTEND Nurse Practitioner Family
DX: J06.9 Acute upper respiratory infection, unspecified (principal); R68.83 Chills (without fever)
CPT/HCPCS: 71046

== ENCOUNTER → 2019-03-04 | Outpatient (CLI) | payer OTHER ==
[2019-03-04 08:26] LABS: BASO # 0.1 x10^3/uL (0.0-0.2); BASO % 1 % (0-3); EOS # 0.6 x10^3/uL (0.0-0.7); EOS % 4 % (0-3); HEMATOCRIT 39.3 % (36.0-47.0); HEMOGLOBIN 12.9 g/dL (12.0-15.5); LYMPH # 4.7 x10^3/uL (1.0-4.8); LYMPH % 30 % (24-48); MEAN CORPUSCULAR HEMOGLOBIN 28 pg (25-35); MEAN CORPUSCULAR HGB CONC 33 g/dL (31-37); MEAN CORPUSCULAR VOLUME 84 fL (79-100); MONO % 6 % (0-9); NEUT # 9.6 x10^3/uL (1.8-7.7); NEUT % 60 % (31-73); PLATELET COUNT 433 x10^3/uL (140-400); RED CELL DISTRIBUTION WIDTH 14.7 % (11.5-14.5)
[2019-03-04 09:21] LABS: ALBUMIN 3.6 g/dL (3.4-5.0); ALBUMIN/GLOBULIN RATIO 0.8 (1.0-1.7); CALCIUM 9.2 mg/dL (8.5-10.1); GFR 57.4; MAGNESIUM 1.3 mg/dL (1.8-2.4); POTASSIUM 3.7 mmol/L (3.5-5.1); TOTAL BILIRUBIN 0.3 mg/dL (0.2-1.0); TOTAL PROTEIN 7.9 g/dL (6.4-8.2)
[2019-03-04 09:27] LABS: CHOLESTEROL/HDL RATIO 4.3
[2019-03-04 19:21] LABS: CREAT RD UR 43.1 mg/dL (Not Estab.); MICRO CREAT RATIO 28.3 mg/g creat (0.0-30.0); MICROALB RD UR 12.2 ug/mL (Not Estab.)
[2019-03-05 00:11] LABS: HEMOGLOBIN A1C 8.7 % (4.8-5.6)
== END | disposition home or self-care (01) ==
LOC: LAB 07:44
PROVIDERS: ATTEND Family Medicine
DX: E11.65 Type 2 diabetes mellitus with hyperglycemia (principal); I10 Essential (primary) hypertension; E78.5 Hyperlipidemia, unspecified; E83.42 Hypomagnesemia
CPT/HCPCS: 36415; 80053; 80061; 82043; 82570; 83036; 83735; 85025

== ENCOUNTER → 2019-09-30 | Outpatient (CLI) | payer OTHER ==
[~2019-09-30] MED LIST changes: +SIMV10TA15 PO; -SIMV10TA3 PO; +TRAZ-123 PO; -TRAZ-86 PO; -VALA1000 PO; +VALA10008 PO
[2019-09-30 08:57] LABS: BASO # 0.1 x10^3/uL (0.0-0.2); BASO % 1 % (0-3); EOS # 0.4 x10^3/uL (0.0-0.7); EOS % 3 % (0-3); HEMOGLOBIN 12.1 g/dL (12.0-15.5); LYMPH # 3.8 x10^3/uL (1.0-4.8); LYMPH % 27 % (24-48); MEAN CORPUSCULAR HEMOGLOBIN 27 pg (25-35); MEAN CORPUSCULAR HGB CONC 32 g/dL (31-37); MEAN CORPUSCULAR VOLUME 84 fL (79-100); MONO # 0.9 x10^3/uL (0.0-1.1); MONO % 6 % (0-9); NEUT # 8.9 x10^3/uL (1.8-7.7); NEUT % 63 % (31-73); PLATELET COUNT 399 x10^3/uL (140-400); RED CELL DISTRIBUTION WIDTH 15.2 % (11.5-14.5)
[2019-09-30 09:20] LABS: ALBUMIN 3.4 g/dL (3.4-5.0); ALBUMIN/GLOBULIN RATIO 0.9 (1.0-1.7); CALCIUM 8.8 mg/dL (8.5-10.1); CREATININE 1.2 mg/dL (0.6-1.0); GFR 46.3; POTASSIUM 4.3 mmol/L (3.5-5.1); TOTAL BILIRUBIN 0.3 mg/dL (0.2-1.0)
[2019-09-30 09:22] LABS: CHOLESTEROL/HDL RATIO 4.3
[2019-10-01 01:08] LABS: HEMOGLOBIN A1C 9.2 % (4.8-5.6)
[2019-10-01 18:08] LABS: ANA INTERP Negative (.)
[2019-10-03 01:08] LABS: CYCLIC CITRULLIN PEP AB 7 units (0-19)
== END | disposition home or self-care (01) ==
LOC: LAB 08:29
PROVIDERS: ATTEND Family Medicine
DX: E11.65 Type 2 diabetes mellitus with hyperglycemia (principal); I10 Essential (primary) hypertension; E78.5 Hyperlipidemia, unspecified; M25.50 Pain in unspecified joint
CPT/HCPCS: 36415; 80053; 80061; 83036; 83735; 85025; 85651; 86038; 86200

== ENCOUNTER → 2019-11-14 | Outpatient (CLI) | payer OTHER ==
[~2019-11-14] MED LIST changes: +MULT-445 PO; -MULT1TAB52 PO
--- NOTE | 2019-11-14 13:02 | CARD ---
MR#: [id number] Date of Study: 11/14/2019 Ordering Physician: FRANKIE AMANDA, Referring Physician: FRANKIE AMANDA, Tech: Anna Benton BETI APPROVED REPORT EXAM: Two-dimensional and M-mode echocardiogram with Doppler and color Doppler. Other Information Quality : Good INDICATION Murmur 2D DIMENSIONS RVDd2.9 (2.9-3.5cm)Left Atrium(2D)3.6 (1.6-4.0cm) IVSd1.1 (0.7-1.1cm)Aortic Root(2D)2.4 (2.0-3.7cm) LVDd4.1 (3.9-5.9cm)LVOT Diameter1.9 (1.8-2.4cm) PWd1.1 (0.7-1.1cm)LVDs2.3 (2.5-4.0cm) FS (%) 30.0 %SV56.8 ml LVEF(%)60.0 (>50%) Aortic Valve AoV Peak Master.133.1cm/sAoV VTI25.2cm AO Peak GR.7.1mmHgLVOT Peak Master.108.8cm/s AO Mean GR.4mmHgAVA (VMAX)2.25cm2 TIM (VTI)2.36wn7UM P 1/2 Ucui908gm Mitral Valve MV E Cssbmfpc39.2cm/sMV DECEL PUKS158ir MV A Txobaspf217.8cm/sE/A Ratio0.8 Tricuspid Valve TR P. Wqljcojg236js/sRAP IEVMOGXY1oeGc TR Peak Gr.26ypCtESBR68pxRg Pulmonary Vein S1 Hloxiwmr68.8cm/sD2 Essperup27.6cm/s LEFT VENTRICLE The left ventricle is normal size. There is normal left ventricular wall thickness. The left ventricu lar systolic function is normal and the ejection fraction is within normal range. The Ejection Fracti on is 55-60%. There is normal LV segmental wall motion. Transmitral Doppler flow pattern is Grade I-a bnormal relaxation pattern. RIGHT VENTRICLE The right ventricle is normal size. The right ventricular systolic function is normal. ATRIA The left atrium size is normal. The right atrium size is normal. The interatrial septum is intact wit h no evidence for an atrial septal defect or patent foramen ovale as noted on 2-D or Doppler imaging. AORTIC VALVE The aortic valve is normal in structure and function. Doppler and Color Flow revealed trace aortic re gurgitation. There is no significant aortic valvular stenosis. MITRAL VALVE The mitral valve is calcified but opens well. Mitral annular calcification is mild. There is no evide nce of mitral valve prolapse. There is no mitral valve stenosis. Doppler and Color Flow revealed no m itral valve regurgitation noted. TRICUSPID VALVE The tricuspid valve is normal in structure and function. Doppler and Color Flow revealed trace tricus pid regurgitation. The PA pressure was estimated at 34 mmHg. There is no tricuspid valve stenosis. PULMONIC VALVE The pulmonic valve is not well visualized. Doppler and Color Flow revealed no pulmonic valvular regur gitation. There is no pulmonic valvular stenosis. GREAT VESSELS The aortic root is normal in size. The ascending aorta is normal in size. The IVC is normal in size a nd collapses <50% with inspiration. PERICARDIAL EFFUSION There is no evidence of significant pericardial effusion. Critical Notification Critical Value: No <Conclusion> The left ventricular systolic function is normal and the ejection fraction is within normal range. Th e Ejection Fraction is 55-60%. There is normal LV segmental wall motion. Signed by : Luis Alfredo Ballard, Electronically Approved : 11/14/2019 13:01:52
== END | disposition home or self-care (01) ==
LOC: ECHO 09:53
PROVIDERS: ATTEND Nurse Practitioner Gerontology
DX: I34.8 Other nonrheumatic mitral valve disorders (principal); R01.1 Cardiac murmur, unspecified
CPT/HCPCS: 93306

== ENCOUNTER → 2019-12-05 | Outpatient (CLI) | payer OTHER | END | disposition home or self-care (01) | LOC: LAB 15:17 | PROVIDERS: ATTEND Internal Medicine Pulmonary Disease | DX: Z20.828 Contact with and (suspected) exposure to other viral communicable diseases (principal) | CPT/HCPCS: C9803; U0003 ==

== ENCOUNTER 2020-03-24 08:07 | Emergency (ER) | payer OTHER ==
[~2020-03-24] VITALS: Ht 157.5 cm; Wt 102.0 kg
[~2020-03-24 08:07] MED LIST changes: -ONDA4TAB7 PO
--- NOTE | 2020-03-24 08:41 | PHYS DOC ---
Past Medical History Past Medical History: Anxiety, Arthritis, Depression, Diabetes-Type I Additional Past Medical Histor: SHINGLES Past Surgical History: Cholecystectomy, Other Additional Past Surgical Histo: SCOPES TO BOTH KNEES, LEFT TENNIS ELBOW, BREAST BX, LIPOMAA REMOVAL Smoking Status: Former Smoker Alcohol Use: None Drug Use: None General Adult EDM: Chief Complaint: FLANK PAIN HPI: HPI: History obtained from patient. Patient is a 59-year-old female history of diabetes, kidney stones, cholecystectomy, shingles who presents with chief complaint of right flank pain. States she has had the pain for 1 week. She states the pain is constant but at times seems to get worse. States movement or bending over makes the pain worse. 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 She notes this feels similar to previous kidney stones. She does note history of urologic intervention for stones years ago. She denies any dysuria. Does note increased urge to void. Denies dysuria. She is currently experiencing a yeast infection. States her primary care physician did call in antibiotics for her this morning which has not been able to pick them up yet. Notes nausea without vomiting. States she has not eaten in the past 2 days. Denies chest pain or cough. No shortness breath. No syncope. Has tried Tylenol at home with minimal relief. Does not use ibuprofen due to concern for kidney injury. Does take Lortab as needed at home for chronic arthritis. No other complaints. Review of Systems: Review of Systems: Constitutional: Denies fever or chills. [] Eyes: Denies change in visual acuity. [] HENT: Denies nasal congestion or sore throat. [] Respiratory: Denies cough or shortness of breath. [] Cardiovascular: Denies chest pain or edema. [] GI: Denies abdominal pain, nausea, vomiting, bloody stools or diarrhea. [] : Denies dysuria. [] oint pain. [] Musculoskeletal: Positive for right flank pain Integument: Denies rash. [] Neurologic: Denies headache, focal weakness or sensory changes. [] Endocrine: Denies polyuria or polydipsia. [] Lymphatic: Denies swollen glands. [] Psychiatric: Denies depression or anxiety. [] Heart Score: Risk Factors: Risk Factors: DM, Current or recent (<one month) smoker, HTN, HLP, family history of CAD, obesity. Risk Scores: Score 0 - 3: 2.5% MACE over next 6 weeks - Discharge Home Score 4 - 6: 20.3% MACE over next 6 weeks - Admit for Clinical Observation Score 7 - 10: 72.7% MACE over next 6 weeks - Early Invasive Strategies Allergies: Allergies: Allergies Coded Allergies Type Severity Reaction Last Updated Verified ragweed pollen Allergy Severe 08/25/17 Yes Sulfa (Sulfonamide Antibiotics) Allergy Intermediate 08/23/17 Yes doxycycline Allergy Intermediate Itching 08/23/17 Yes levofloxacin Allergy Intermediate bone pain 08/29/17 Yes I S O L A T I O N *CONTACT* Allergy Unknown 08/29/17 Yes Physical Exam: PE: Constitutional: Well developed, well nourished, no acute distress, non-toxic appearance. [] HENT: Normocephalic, atraumatic, bilateral external ears normal, oropharynx moist, no oral exudates, nose normal. [] Eyes: PERRLA, EOMI, conjunctiva normal, no discharge. [] Neck: Normal range of motion, no tenderness, supple, no stridor. [] Cardiovascular:Heart rate regular rhythm, no murmur [] Lungs & Thorax: Bilateral breath sounds clear to auscultation [] Abdomen: Soft, nontender, nonacute abdomen. No involuntary guarding or rigidity noted. No acute peritonitis. Skin: Warm, dry, no erythema, no rash. [] Back: Mild right CVA tenderness. No overlying rashes noted. Extremities: No tenderness, no cyanosis, no clubbing, ROM intact, no edema. [] Neurologic: Alert and oriented X 3, normal motor function, normal sensory function, no focal deficits noted. [] Psychologic: Affect normal, judgement normal, mood normal. [] Current Patient Data: Labs: Laboratory Tests Test 03/24/20 08:05 03/24/20 08:58 D-Dimer (Shruti) 0.41 ug/mlFEU White Blood Count 13.7 x10^3/uL Red Blood Count 4.47 x10^6/uL Hemoglobin 12.1 g/dL Hematocrit 37.7 % Mean Corpuscular Volume 84 fL Mean Corpuscular Hemoglobin 27 pg Mean Corpuscular Hemoglobin Concent 32 g/dL Red Cell Distribution Width 15.2 % Platelet Count 371 x10^3/uL Neutrophils (%) (Auto) 56 % Lymphocytes (%) (Auto) 33 % Monocytes (%) (Auto) 6 % Eosinophils (%) (Auto) 4 % Basophils (%) (Auto) 1 % Neutrophils # (Auto) 7.6 x10^3/uL Lymphocytes # (Auto) 4.5 x10^3/uL Monocytes # (Auto) 0.8 x10^3/uL Eosinophils # (Auto) 0.6 x10^3/uL Basophils # (Auto) 0.1 x10^3/uL Sodium Level 140 mmol/L Potassium Level 4.3 mmol/L Chloride Level 101 mmol/L Carbon Dioxide Level 29 mmol/L Anion Gap 10 Blood Urea Nitrogen 13 mg/dL Creatinine 1.2 mg/dL Estimated GFR (Cockcroft-Gault) 46.3 BUN/Creatinine Ratio 11 Glucose Level 138 mg/dL Calcium Level 9.4 mg/dL Total Bilirubin 0.5 mg/dL Aspartate Amino Transf (AST/SGOT) 38 U/L Alanine Aminotransferase (ALT/SGPT) 40 U/L Alkaline Phosphatase 103 U/L Troponin I Quantitative < 0.017 ng/mL Total Protein 7.4 g/dL Albumin 3.7 g/dL Albumin/Globulin Ratio 1.0 Lipase 117 U/L Current Medications Medications (Trade) Dose Ordered Sig/Gretchen Route PRN Reason Start Time Stop Time Status Last Admin Dose Admin Morphine Sulfate (Morphine Sulfate) 4 mg 1X ONCE IV 03/24/20 08:45 03/24/20 08:46 DC 03/24/20 09:10 Ondansetron HCl (Zofran) 4 mg 1X ONCE IVP 03/24/20 08:45 03/24/20 08:46 DC 03/24/20 09:09 Sodium Chloride 1,000 ml @ 1,000 mls/hr 1X ONCE IV 03/24/20 09:15 03/24/20 10:14 03/24/20 09:20 Vital Signs: Vital Signs Date Time Temp Pulse Resp B/P (MAP) Pulse Ox O2 Delivery O2 Flow Rate FiO2 03/24/20 08:12 98.2 89 18 126/59 (81) 97 Room Air 98.2 EKG: EKG: EKG consistent with normal sinus rhythm. Ventricular rate of 87 bpm. Left axis noted. Intervals normal. No acute ischemic changes appreciated. [] Radiology/Procedures: Radiology/Procedures: [facility] [address] [place], [place] [id number] IMAGING REPORT Signed PATIENT: MALDONADO NOVAK ACCOUNT: [id number] : 1960 LOCATION: ER AGE: 59 SEX: F EXAM STATUS: REG ER ORD. PHYSICIAN: JUAN NOGUERA DO REASON: R flank pain. hx kidney stones PROCEDURE: CT ABDOMEN PELVIS WO CONTRAST EXAM: Abdomen and pelvis CT without intravenous contrast. HISTORY: Right flank pain. TECHNIQUE: Computed tomographic images of the abdomen and pelvis were obtained without contrast. Multiplanar reformatting was performed. *One or more of the following individualized dose reduction techniques were utilized for this examination: 1. Automated exposure control. 2. Adjustment of the mA and/or kV according to patient size. 3. Use of iterative reconstruction technique. COMPARISON: None. FINDINGS: Evaluation of the lower thorax demonstrates a calcified granuloma within the right lung base. There is no suspicious pulmonary nodule. There is no infiltrate. The heart is normal in size. There is hepatomegaly and hepatic steatosis. There is no suspicious hepatic lesion. The gallbladder is surgically absent. The pancreas is unremarkable. There is a small splenule posterior to an otherwise unremarkable spleen. The adrenal glands are unremarkable. There is no nephroureterolithiasis or hydronephrosis. No renal lesion is seen. The bladder is unremarkable. There are few pelvic phleboliths. The uterus and adnexal regions are unremarkable. There is no appendicitis. There is no bowel obstruction. There is no abnormal bowel wall thickening. There is distal colonic diverticulosis. There is no diverticulitis. The aorta is normal in caliber. There is no lymphadenopathy. There is a tiny fat-containing umbilical hernia. There are degenerative changes involving the spine. There is no suspicious osseous lesion. IMPRESSION: 1. No acute abdominal or pelvic finding. 2. Hepatomegaly and hepatic steatosis. 3. Colonic diverticulosis. Electronically signed by: Catie Montes De Oca MD (03/24/2020 8:59 AM) [id number] DICTATED and SIGNED BY: CAITE MONTES DE OCA MD DATE: 03/24/20 0859 [] Course & Med Decision Making: Course & Med Decision Making Pertinent Labs and Imaging studies reviewed. (See chart for details) [] Patient is a 59-year-old female who presents with chief complaint of right flank pain for the past 1 week. Initial vital signs unremarkable. EKG without acute ischemic changes. Patient was initially concern for kidney stone. CT imaging reveals no signs of hydronephrosis or ureterolithiasis. Urinalysis shows no signs of hematuria or infection. Basic labs were obtained and were grossly unremarkable. Creatinine of 1.2. No signs of acute renal failure. Troponin negative. D-dimer was also obtained given the unclear etiology of her symptoms and was also negative. Chest x-ray nonfocal. On repeat assessment patient symptoms have improved. I did discuss results of labs and imaging great detail. At this time the exact etiology of her symptoms are unclear however I do have low suspicion for emergent etiology. I do feel the patient is appropriate for discharge home with close primary care physician follow-up. She is agreeable to this. Strict return precautions were discussed and understood. Stable for discharge home. I provided verbal discharge instructions regarding their emergency department diagnosis. If you had any diagnostic studies ( Labs or Xray's, CAT scan, Ultras ound ) have your PCP (Primary Care Physician) review them with you since there may be results that require further follow up or investigation. Prognosis, expected clinical course, and return precautions were reviewed. I answered the patients questions and instructed them to return if any new or worsening symptoms develop. The patient expressed understanding of the instructions and reported that all of their questions had been answered. Adelita Disclaimer: Adelita Disclaimer: This electronic medical record was generated, in whole or in part, using a voice recognition dictation system. Departure Departure Impression: Primary Impression: Right flank pain Disposition: 01 DC HOME SELF CARE/HOMELESS Condition: STABLE Referrals: CELESTE CEDENO MD (PCP) Patient Instructions: Flank Pain Additional Instructions: Please follow-up with your primary care physician in the next 2 to 3 days. Discharge Abdominal Pain Re-Check Precautions: I'm unsure of the specific cause of your abdominal pain. However, at this point I feel that you are low risk for a life threatening emergency and that discharge from the Emergency Department is safe. There is a very small possibility that you are just too early in your clinical course for our physical exam/labs/imaging to ascertain whether or not you have an emergent condition that could potentially cause permanent disability or be life threatening. As such, it is very important that you follow up with your primary doctor or return to the Emergency Department in 12-24 hours for re-assessment and further evaluation if clinically indicated. If you develop new or worsening symptoms then you should return to the Emergency Department immediately. Home Care Instructions: Abdominal Pain Many things may cause abdominal pain. Your ER visit might not show the exact reason you are having pain. In some cases, additional time is needed to determine if the cause is serious. Therefore you may be told to go home and watch for any changes or worsening in your condition. Before that, we may not know if you need more testing, or if hospitalization or surgery is necessary. If its not something serious, the pain may go away without treatment or get better with simple things like avoiding certain foods or medications. In the ER, your doctor asks you questions, examines you and in some cases, may order tests. These help doctors decide if the pain is from something serious. Tests are not always done and may not provide a definite answer. There can still be a problem, even with normal test results. Abdominal pain may be caused by something serious (like appendicitis), which is not obvious right away. Because of this, another checkup is needed to make sure you are OK. It is VERY IMPORTANT to follow up for a repeat exam, especially if you have any symptoms that are not going away or are getting worse. We recommend that you RETURN TO THE EMERGENCY ROOM IN 8-12 HOURS to be rechecked. If you cannot, you may follow up with your primary care doctor or clinic. It is important that you follow all of the instructions below. RETURN TO THE EMERGENCY ROOM IMMEDIATELY IF: The pain does not go away or gets worse. You have a fever. You keep throwing up and cannot keep anything down. You pass bloody or black stools. You develop new symptoms. HOME CARE INSTRUCTIONS Come back to the ER (or see your doctor) in 8-12 hours. DO NOT take laxatives unless directed by your doctor. Avoid the use of alcohol Take pain medicine only as directed by your doctor. Only take tmad-meh-zoajrok or prescription medicine as directed by your doctor. Try a clear liquid diet (broth, tea, jello, water) for the next 12-24 hours. Slowly move to a bland diet as tolerated. Do not eat greasy, fatty or spicy foods. Once you start getting better, go back to a normal, healthy diet, slowly over a few days. DISCHARGE PT INSTRUCTIONS: YOU HAVE BEEN EVALUATED FOR ABDOMINAL PAIN. HOWEVER, WE ARE UNABLE TO PROVIDE A DEFINITE CAUSE OF YOUR SYMPTOMS. EVEN THOUGH YOUR TESTS MAY HAVE BEEN NORMAL, YOU STILL COULD HAVE A SERIOUS CAUSE FOR YOUR ABDOMINAL PAIN, INCLUDING APPENDICITIS. THE BEST TEST TO DETERMINE IF YOU HAVE A SERIOUS CAUSE IS RE-EXAMINATION OVER TIME. WE USED TO ADMIT PATIENTS TO THE HOSPITAL FOR THIS, BUT CAN NOW ALLOW YOU TO GO HOME, & RETURN TO OUR ER THE NEXT DAY FOR RE- EXAMINATION. THUS, WE WOULD LIKE YOU TO RETURN TO OUR ER TOMORROW FOR YOUR RE- EVALUATION. (IF YOUR SYMPTOMS HAVE GONE AWAY, THEN YOU DO NOT NEED TO RETURN.) IF YOUR SYMPTOMS GET WORSE BETWEEN NOW & THEN, YOU S HOULD RETURN IMMEDIATELY & NOT WAIT UNTIL TOMORROW. SYMPTOMS TO LOOK FOR WORSENING PAIN, HIGH FEVER, PERSISTENT VOMITING [NOT CONTROLLED BY MEDICINE], AND/OR OVERALL WORSENING OF YOUR CONDITION. Scripts Ondansetron Hcl (ZOFRAN) 4 Mg Tablet 4 MG PO PRN TID PRN for NAUSEA, #9 TAB nausea/vomiting Prov: JUAN NOGUERA DO 03/24/20 JUAN NOGUERA DO Mar 24, 2020 08:40
[2020-03-24] MEDS ORDERED: MORPHINE SULFATE 4 MG/ML VIAL. IV ONE (08:45)
[2020-03-24] MEDS ORDERED: ONDANSETRON PF 4 MG/2 ML VIAL. IVP ONE (08:45)
--- NOTE | 2020-03-24 09:02 | RAD ---
EXAM: Abdomen and pelvis CT without intravenous contrast. HISTORY: Right flank pain. TECHNIQUE: Computed tomographic images of the abdomen and pelvis were obtained without contrast. Multiplanar reformatting was performed. *One or more of the following individualized dose reduction techniques were utilized for this examination: 1. Automated exposure control. 2. Adjustment of the mA and/or kV according to patient size. 3. Use of iterative reconstruction technique. COMPARISON: None. FINDINGS: Evaluation of the lower thorax demonstrates a calcified granuloma within the right lung base. There is no suspicious pulmonary nodule. There is no infiltrate. The heart is normal in size. There is hepatomegaly and hepatic steatosis. There is no suspicious hepatic lesion. The gallbladder is surgically absent. The pancreas is unremarkable. There is a small splenule posterior to an otherwise unremarkable spleen. The adrenal glands are unremarkable. There is no nephroureterolithiasis or hydronephrosis. No renal lesion is seen. The bladder is unremarkable. There are few pelvic phleboliths. The uterus and adnexal regions are unremarkable. There is no appendicitis. There is no bowel obstruction. There is no abnormal bowel wall thickening. There is distal colonic diverticulosis. There is no diverticulitis. The aorta is normal in caliber. There is no lymphadenopathy. There is a tiny fat-containing umbilical hernia. There are degenerative changes involving the spine. There is no suspicious osseous lesion. IMPRESSION: 1. No acute abdominal or pelvic finding. 2. Hepatomegaly and hepatic steatosis. 3. Colonic diverticulosis. Electronically signed by: Catie Frias MD (03/24/2020 8:59 AM) [id number]
[2020-03-24 09:09] LABS: BASO # 0.1 x10^3/uL (0.0-0.2); BASO % 1 % (0-3); EOS # 0.6 x10^3/uL (0.0-0.7); EOS % 4 % (0-3); HEMATOCRIT 37.7 % (36.0-47.0); HEMOGLOBIN 12.1 g/dL (12.0-15.5); LYMPH # 4.5 x10^3/uL (1.0-4.8); LYMPH % 33 % (24-48); MEAN CORPUSCULAR HEMOGLOBIN 27 pg (25-35); MEAN CORPUSCULAR HGB CONC 32 g/dL (31-37); MEAN CORPUSCULAR VOLUME 84 fL (79-100); MONO # 0.8 x10^3/uL (0.0-1.1); MONO % 6 % (0-9); NEUT # 7.6 x10^3/uL (1.8-7.7); NEUT % 56 % (31-73); PLATELET COUNT 371 x10^3/uL (140-400); RED BLOOD COUNT 4.47 x10^6/uL (3.50-5.40); RED CELL DISTRIBUTION WIDTH 15.2 % (11.5-14.5); WHITE BLOOD COUNT 13.7 x10^3/uL (4.0-11.0)
[2020-03-24] MEDS ORDERED: IV NORMAL SALINE 1000ML BAG 1,000 ML IV ONE (09:15)
[2020-03-24 09:19] LABS: CALCIUM 9.4 mg/dL (8.5-10.1); CREATININE 1.2 mg/dL (0.6-1.0); GFR 46.3; POTASSIUM 4.3 mmol/L (3.5-5.1)
[2020-03-24 09:25] LABS: ALBUMIN 3.7 g/dL (3.4-5.0); TOTAL BILIRUBIN 0.5 mg/dL (0.2-1.0); TOTAL PROTEIN 7.4 g/dL (6.4-8.2)
--- NOTE | 2020-03-24 09:36 | EKG ---
[facility] [address] [place] [address] Test Date: 2020-03-24 Test Time: 08:58:19 Pat Name: MALDONADO NOVAK Department: Room: Gender: F Php Web Developer: : 1960 Requested By: JUAN NOGUERA Order Number: [id number] Reading MD: Hermann Shelton Measurements Intervals [place] Rate: 87 P: 47 NE: 156 QRS: -9 QRSD: 72 T: 31 QT: 370 QTc: 446 Interpretive Statements SINUS RHYTHM LEFTWARD AXIS QRS(T) CONTOUR ABNORMALITY CONSIDER ANTEROSEPTAL MYOCARDIAL DAMAGE CONSISTENT WITH INFERIOR INFARCT PROBABLY OLD ABNORMAL ECG RI6.02 No previous ECG available for comparison Electronically Signed On 03-25-2020 9:19:50 DUPLICATE MAKER by Hermann Shelton
--- NOTE | 2020-03-24 09:53 | RAD ---
EXAM: AP View of the chest DATE: 03/24/2020 12:00 AM INDICATION: Reason: r flank pain, pt having palpitations. COMPARISON: 03/04/2019 FINDINGS: The heart is not enlarged. Mediastinal and hilar contours are normal. No focal parenchymal airspace opacity. No pleural effusion or pneumothorax. Left second rib appears diminutive. Left apical pleural thickening. IMPRESSION: 1. No radiographic evidence for acute cardiopulmonary process. Electronically signed by: Sudhir Valiente MD (03/24/2020 9:50 AM) [id number]
[2020-03-24] MEDS ORDERED: ONDA4TAB7 PO (09:59)
[2020-03-24 10:19] VITALS: BP 133/61
== END 2020-03-24 10:27 | disposition home or self-care (01) ==
LOC: ER 08:07
DX: R10.9 Unspecified abdominal pain (principal); F41.9 Anxiety disorder, unspecified; M19.90 Unspecified osteoarthritis, unspecified site; F32.9 Major depressive disorder, single episode, unspecified; E10.9 Type 1 diabetes mellitus without complications; Z90.49 Acquired absence of other specified parts of digestive tract; Z98.890 Other specified postprocedural states; Z87.442 Personal history of urinary calculi; Z88.1 Allergy status to other antibiotic agents; Z88.2 Allergy status to sulfonamides; Z88.8 Allergy status to other drugs, medicaments and biological substances
CPT/HCPCS: 36415; 71045; 74176; 80053; 83690; 84484; 85025; 85379; 93005; 96361; 96374; 96375; 99285; J2270; J2405; J7030

== ENCOUNTER → 2020-03-24 | Outpatient (CLI) | payer OTHER ==
[~2020-03-24] MED LIST changes: +ONDA4TAB7 PO
[2020-03-24 08:16] LABS: BILIRUBIN,URINE NEGATIVE (NEG); CLARITY,URINE CLEAR; COLOR,URINE YELLOW; NITRITE,URINE NEGATIVE (NEG); PH,URINE 5.5 (<5.0-8.0); PROTEIN,URINE NEGATIVE (NEG-TRACE); UROBILINOGEN,URINE 0.2 mg/dL (0.2 mg/dL)
[2020-03-24 08:27] LABS: BACTERIA,URINE 0 /HPF (0-FEW); RBC,URINE 0 /HPF (0-2); WBC,URINE OCC /HPF (0-4)
[2020-03-24 08:35] LABS: ALBUMIN 3.6 g/dL (3.4-5.0); ALBUMIN/GLOBULIN RATIO 1.1 (1.0-1.7); CALCIUM 9.2 mg/dL (8.5-10.1); CREATININE 1.2 mg/dL (0.6-1.0); GFR 46.3; MAGNESIUM 1.3 mg/dL (1.8-2.4); POTASSIUM 4.4 mmol/L (3.5-5.1); TOTAL BILIRUBIN 0.4 mg/dL (0.2-1.0); TOTAL PROTEIN 6.9 g/dL (6.4-8.2)
[2020-03-25 00:08] LABS: HEMOGLOBIN A1C 9.3 % (4.8-5.6)
== END ==
LOC: LAB 07:43
PROVIDERS: ATTEND Family Medicine
DX: E11.65 Type 2 diabetes mellitus with hyperglycemia (principal); E83.42 Hypomagnesemia; R10.9 Unspecified abdominal pain
CPT/HCPCS: 36415; 80053; 81001; 83036; 83735; 87086

== ENCOUNTER 2020-04-01 07:35 | Day surgery (SDC) | payer OTHER ==
[~2020-04-01] VITALS: Ht 157.5 cm; Wt 102.5 kg
[~2020-04-01 07:35] MED LIST changes: +BREX1TAB PO; +CIPROFLOXACIN 0.3% OPHTH SOLUTION 5ML BOTTLE. OD ONE; +CYCLOPENTOLATE 1% OPHTH SOLUTION 2ML BOTTLE. OD SCH; +EZET10TA20 PO; +IV RINGERS,LACTATED 1000ML 1,000 ML IV SCH; +LIDOCAINE 2% JELLY 6ML IN APPLICATOR. OD ONE; +MAGN400T5 PO; +ONDA4TAB7 PO; +PROPARACAINE 0.5% OPHTH SOLUTION 15ML BOTTLE. OD ONE
[2020-04-01] MEDS ORDERED: ROCURONIUM 50 MG/5 ML VIAL. ONE (08:31)
[2020-04-01] MEDS ORDERED: SUCCINYLCHOLINE 200 MG/10 ML VIAL. ONE (08:32)
[2020-04-01] MEDS ORDERED: fentaNYL PF VIAL 100 MCG/2 ML VIAL ONE (08:33)
[2020-04-01] MEDS ORDERED: PROPOFOL 0 ML IV ONE (08:34)
[2020-04-01] MEDS ORDERED: REMIFENTANIL 2 MG VIAL. IV ONE (08:34)
[2020-04-01] MEDS: CYCLOPENTOLATE 2% OPHTH SOLUTION 2ML BOTTLE. OD SCH ×3 (10:41→10:51)
[2020-04-01] MEDS: PHENYLEPHRINE 10% OPHTH SOLUTION 5ML BOTTLE. OD SCH ×3 (10:41→10:51)
[2020-04-01] MEDS ORDERED: INSULIN LISPRO 100 UNIT/ML 3ML VIAL for OP,RR ONLY. SQ PRN (10:45)
[2020-04-01] MEDS ORDERED: INSULIN LISPRO 100 UNIT/ML 3ML VIAL for OP,RR ONLY. SQ ONE (11:00)
[2020-04-01] MEDS ORDERED: NEO/POLYMYX/DEXAMETH OPHTH OINTMENT 3.5GM TUBE. ONE (11:35)
[2020-04-01] MEDS ORDERED: LIDOCAINE 1%/PHENYLEPH 1.5% PF OPHTH 1 ML VIAL. ONE (11:36)
[2020-04-01] MEDS ORDERED: CHONDROITIN-SOD-HYALURONATE 0.5 ML DISP.SYRIN. ONE (11:36)
[2020-04-01] MEDS ORDERED: LIDOCAINE 2% JELLY 6ML IN APPLICATOR. ONE (11:36)
[2020-04-01] MEDS ORDERED: CHONDROIT-SOD-HYALURONATE KIT. ONE (11:36)
[2020-04-01] MEDS ORDERED: MIDAZOLAM HCL/PF 2 MG/2 ML VIAL. ONE (12:34)
--- NOTE | 2020-04-01 13:18 | OP ---
DATE OF SURGERY: 04/01/2020 PREOPERATIVE DIAGNOSIS: Cataract of the right eye. PROCEDURE: Phacoemulsification with posterior chamber intraocular lens implantation of the right eye. INDICATION: Painless progressive visual loss and visually significant cataract and difficulty reading and driving. SURGEON: Mickey Bill MD ANESTHESIA: Topical with monitored anesthesia care. DESCRIPTION OF PROCEDURE: The right eye was prepped with Betadine in the usual sterile fashion and draped. A paracentesis was performed followed by instillation of preservative-free phenylephrine admixed with lidocaine and balanced salt solution. A temporal clear corneal incision was made followed by a capsulorrhexis under viscoelastic. Balanced salt solution was used to hydroexpression of the nucleus to the pupillary plane and evacuated with the phacoemulsification handpiece. The I/A handpiece was used to remove the cortex. Viscoelastic was injected in the capsular bag and an Bin model [id number] with a power of 13.0 diopters was placed into the capsular bag. Balanced salt solution was used to hydrate the corneal wounds and the viscoelastic evacuated with the I/A handpiece. Once no leak was noted, Maxitrol was placed on the eye and the eye shielded and the patient was sent to the recovery room uneventfully. MICKEY BILL MD DR: LILLIAN/nts JOB#: [id number] / [id number]
[2020-04-01 13:57] VITALS: BP 115/59
== END 2020-04-01 14:04 | disposition home or self-care (01) ==
LOC: SURG 07:35
PROVIDERS: ATTEND Ophthalmology
DX: E11.36 Type 2 diabetes mellitus with diabetic cataract (principal); H25.89 Other age-related cataract; E11.42 Type 2 diabetes mellitus with diabetic polyneuropathy; I10 Essential (primary) hypertension; K21.9 Gastro-esophageal reflux disease without esophagitis; M06.9 Rheumatoid arthritis, unspecified; E66.9 Obesity, unspecified; G47.30 Sleep apnea, unspecified; F41.9 Anxiety disorder, unspecified; F32.9 Major depressive disorder, single episode, unspecified; Z90.49 Acquired absence of other specified parts of digestive tract; Z98.890 Other specified postprocedural states; Z79.82 Long term (current) use of aspirin; Z79.84 Long term (current) use of oral hypoglycemic drugs; Z79.899 Other long term (current) drug therapy; Z87.891 Personal history of nicotine dependence; Z88.2 Allergy status to sulfonamides; Z88.1 Allergy status to other antibiotic agents; Z88.8 Allergy status to other drugs, medicaments and biological substances; Z20.828 Contact with and (suspected) exposure to other viral communicable diseases
CPT/HCPCS: 66984; 82962; 87426; C1780; J0171; J0330; J0690; J1580; J1815; J2250; J3490; U0003; C9803; J2704; J3010

== ENCOUNTER 2020-04-08 09:54 | Day surgery (SDC) | payer OTHER ==
[~2020-04-08] VITALS: Ht 157.5 cm; Wt 102.5 kg
[~2020-04-08 09:54] MED LIST changes: -CIPROFLOXACIN 0.3% OPHTH SOLUTION 5ML BOTTLE. OD ONE; +CIPROFLOXACIN 0.3% OPHTH SOLUTION 5ML BOTTLE. OS ONE; -CYCLOPENTOLATE 1% OPHTH SOLUTION 2ML BOTTLE. OD SCH; +CYCLOPENTOLATE 1% OPHTH SOLUTION 2ML BOTTLE. OS SCH; -LIDOCAINE 2% JELLY 6ML IN APPLICATOR. OD ONE; +LIDOCAINE 2% JELLY 6ML IN APPLICATOR. OS ONE; +PHENYLEPHRINE 2.5% OPHTH SOLUTION 2ML BOTTLE. OS SCH; -PROPARACAINE 0.5% OPHTH SOLUTION 15ML BOTTLE. OD ONE; +PROPARACAINE 0.5% OPHTH SOLUTION 15ML BOTTLE. OS ONE
[2020-04-08] MEDS ORDERED: INSULIN LISPRO 100 UNIT/ML 3ML VIAL for OP,RR ONLY. SQ PRN (10:15)
[2020-04-08] MEDS: CYCLOPENTOLATE 2% OPHTH SOLUTION 2ML BOTTLE. OS SCH ×3 (10:35→10:50)
[2020-04-08] MEDS: PHENYLEPHRINE 10% OPHTH SOLUTION 5ML BOTTLE. OS SCH ×3 (10:35→10:50)
[2020-04-08] MEDS ORDERED: INSULIN LISPRO 100 UNIT/ML 3ML VIAL for OP,RR ONLY. SQ ONE (10:45)
[2020-04-08] MEDS ORDERED: LIDOCAINE 2% JELLY 6ML IN APPLICATOR. ONE (10:46)
[2020-04-08] MEDS ORDERED: NEO/POLYMYX/DEXAMETH OPHTH OINTMENT 3.5GM TUBE. ONE (10:46)
[2020-04-08] MEDS ORDERED: CHONDROIT-SOD-HYALURONATE KIT. ONE (10:47)
[2020-04-08] MEDS ORDERED: CHONDROITIN-SOD-HYALURONATE 0.5 ML DISP.SYRIN. ONE (10:47)
[2020-04-08] MEDS ORDERED: LIDOCAINE 1%/PHENYLEPH 1.5% PF OPHTH 1 ML VIAL. ONE (10:47)
[2020-04-08] MEDS ORDERED: MIDAZOLAM HCL/PF 2 MG/2 ML VIAL. ONE (12:36)
[2020-04-08 13:07] VITALS: BP 96/50
--- NOTE | 2020-04-08 14:14 | OP ---
DATE OF SURGERY: 04/08/2020 PREOPERATIVE DIAGNOSIS: Cataract of the left eye. PROCEDURE: Phacoemulsification with posterior chamber intraocular lens implantation of the right eye. INDICATION: Painless progressive visual loss and difficulty reading. SURGEON: Mickey Bill MD. ANESTHESIA: Topical with monitored anesthesia care. DESCRIPTION OF PROCEDURE: The left eye was prepped with Betadine in the usual sterile fashion and draped. A paracentesis was performed followed by instillation of preservative-free phenylephrine admixed with lidocaine and balanced salt solution. A temporal clear corneal incision was made followed by instillation of viscoelastic and a capsulorrhexis was performed. Hydrodissection was used to hydroexpress the nucleus to the pupillary plane and the Viscoat sandwich was made both anterior and posterior to the nucleus. The phacoemulsification handpiece was used to remove the nucleus and the I/A handpiece used to remove the remainder of the cortex. Viscoelastic was injected in the capsular bag and an Bin, model [id number] with a power of 13.0 diopters was placed into the capsular bag. Balanced salt solution was used to hydrate the corneal wounds and the viscoelastic evacuated with the I/A handpiece. Once no leak was noted, Maxitrol was placed on the eye and the eye shielded and the patient was sent to the recovery room uneventfully. MICKEY BILL MD DR: LILLIAN/tevin JOB#: [id number] / [id number]
== END 2020-04-08 13:36 | disposition home or self-care (01) ==
LOC: SURG 09:54
PROVIDERS: ATTEND Ophthalmology
DX: E11.36 Type 2 diabetes mellitus with diabetic cataract (principal); H25.89 Other age-related cataract; E11.42 Type 2 diabetes mellitus with diabetic polyneuropathy; I10 Essential (primary) hypertension; K21.9 Gastro-esophageal reflux disease without esophagitis; E66.9 Obesity, unspecified; M19.90 Unspecified osteoarthritis, unspecified site; F41.9 Anxiety disorder, unspecified; F32.9 Major depressive disorder, single episode, unspecified; Z20.828 Contact with and (suspected) exposure to other viral communicable diseases; Z90.710 Acquired absence of both cervix and uterus; Z98.890 Other specified postprocedural states; Z79.899 Other long term (current) drug therapy; Z79.4 Long term (current) use of insulin; Z87.891 Personal history of nicotine dependence; Z88.1 Allergy status to other antibiotic agents; Z88.2 Allergy status to sulfonamides; Z88.8 Allergy status to other drugs, medicaments and biological substances
CPT/HCPCS: 66984; 82962; 87426; C1780; J0171; J0690; J1580; J1815; J2250; J3490; U0003

== ENCOUNTER → 2020-11-06 | Outpatient (CLI) | payer OTHER ==
[~2020-11-06] MED LIST changes: -CIPROFLOXACIN 0.3% OPHTH SOLUTION 5ML BOTTLE. OS ONE; -CLIN300C8 PO; +CLIN300C9 PO; -CYCLOPENTOLATE 1% OPHTH SOLUTION 2ML BOTTLE. OS SCH; -IV RINGERS,LACTATED 1000ML 1,000 ML IV SCH; -LIDO30CR TP; +LIDO30CR2 TP; -LIDOCAINE 2% JELLY 6ML IN APPLICATOR. OS ONE; -PHENYLEPHRINE 2.5% OPHTH SOLUTION 2ML BOTTLE. OS SCH; -PROPARACAINE 0.5% OPHTH SOLUTION 15ML BOTTLE. OS ONE
--- NOTE | 2020-11-06 09:04 | RAD ---
PQRS Compliance Statement: One or more of the following individualized dose reduction techniques were utilized for this examinat ion: 1. Automated exposure control 2. Adjustment of the mA and/or kV according to patient size 3. Use of iterative reconstruction technique CT MAXILLOFACIAL WITHOUT CONTRAST 11/06/2020 7:44 AM Indication: Chronic sinusitis COMPARISON: CT head 04/17/2018, CT maxillofacial for 08/25/2017 TECHNIQUE: Multiple axial CT images of the paranasal sinuses were obtained without intravenous contra st. Coronal and sagittal reformats are provided. FINDINGS: Visualized portions of the brain parenchyma and posterior fossa are normal in appearance. Orbits are normal in appearance with exception of bilateral lens replacement. No intraconal or extraconal mass i s identified. Extraocular muscles are intact. Frontal sinuses, ethmoid air cells, maxillary sinuses a nd sphenoid sinuses are well aerated. Pterygopalatine fossa is normal. No significant nasal septal de viation. Ostiomeatal units are widely patent. No osseous erosion is identified. Maxilla and mandible are intact. Boat Rigger spaces normal in appearance. Skull base is intact. Mastoid air cells are well aerated. Middle ear cavity appears normal. IMPRESSION: No inflammatory changes are identified involving the paranasal sinuses as detailed above. Ostiomeatal units are widely patent. Electronically signed by: Brenda Johns MD (11/06/2020 9:02 AM) [id number]
== END ==
LOC: CT 08:46
PROVIDERS: ATTEND Family Medicine
DX: J32.8 Other chronic sinusitis (principal)
CPT/HCPCS: 70486

== ENCOUNTER → 2021-05-19 | Outpatient (CLI) | payer OTHER ==
[~2021-05-19] MED LIST changes: +CLIN-94 PO; -CLIN300C9 PO; +CYCL10TA19 PO; -CYCL10TA2 PO; -DULO60CA6 PO; +DULO60CA7 PO; +MAGN400T48 PO; -MAGN400T5 PO
[2021-05-19 13:35] LABS: ALBUMIN 3.3 g/dL (3.4-5.0); ALBUMIN/GLOBULIN RATIO 0.8 (1.0-1.7); CHOLESTEROL/HDL RATIO 3.3; CREATININE 1.4 mg/dL (0.6-1.0); GFR 38.6; MAGNESIUM 1.4 mg/dL (1.8-2.4); POTASSIUM 4.5 mmol/L (3.5-5.1); TOTAL BILIRUBIN 0.4 mg/dL (0.2-1.0); TOTAL PROTEIN 7.6 g/dL (6.4-8.2)
[2021-05-19 13:37] LABS: BASO # 0.1 x10^3/uL (0.0-0.2); BASO % 1 % (0-3); EOS # 0.3 x10^3/uL (0.0-0.7); EOS % 3 % (0-3); HEMATOCRIT 37.5 % (36.0-47.0); HEMOGLOBIN 11.9 g/dL (12.0-15.5); LYMPH # 4.5 x10^3/uL (1.0-4.8); LYMPH % 39 % (24-48); MEAN CORPUSCULAR HEMOGLOBIN 26 pg (25-35); MEAN CORPUSCULAR HGB CONC 32 g/dL (31-37); MEAN CORPUSCULAR VOLUME 83 fL (79-100); MONO # 0.9 x10^3/uL (0.0-1.1); MONO % 8 % (0-9); NEUT # 5.9 x10^3/uL (1.8-7.7); NEUT % 50 % (31-73); PLATELET COUNT 363 x10^3/uL (140-400); RED BLOOD COUNT 4.51 x10^6/uL (3.50-5.40); RED CELL DISTRIBUTION WIDTH 15.1 % (11.5-14.5); WHITE BLOOD COUNT 11.8 x10^3/uL (4.0-11.0)
[2021-05-19 21:07] LABS: MICROALB RD UR 8.1 ug/mL (Not Estab.)
[2021-05-20 02:08] LABS: HEMOGLOBIN A1C 10.7 % (4.8-5.6)
== END ==
LOC: SPEC 13:04
PROVIDERS: ATTEND Family Medicine
DX: E11.65 Type 2 diabetes mellitus with hyperglycemia (principal); E78.5 Hyperlipidemia, unspecified; E83.42 Hypomagnesemia
CPT/HCPCS: 36415; 80053; 80061; 82043; 82570; 83036; 83721; 83735; 85025

== ENCOUNTER → 2021-05-25 | Outpatient (CLI) | payer OTHER | LOC: LAB 08:25 | PROVIDERS: ATTEND Internal Medicine Pulmonary Disease | DX: R05.9 Cough, unspecified (principal); R51.9 Headache, unspecified; J02.9 Acute pharyngitis, unspecified; M79.10 Myalgia, unspecified site; Z20.822 Contact with and (suspected) exposure to COVID-19 | CPT/HCPCS: U0003; U0005 ==